=== PATIENT | female | born 1940 | race Caucasian/White ===

== ENCOUNTER → 2021-01-03 | Outpatient (CLI) | payer OTHER, BC | LOC: ULTRA 13:10 | PROVIDERS: ATTEND Family Medicine | DX: R60.0 Localized edema (principal) ==

== ENCOUNTER 2021-04-16 11:06 | Inpatient (IN) | payer OTHER, BC ==
[~2021-04-16] VITALS: Ht 160 cm; Wt 56.7 kg
--- NOTE | ~2021-04-16 | EMS ---
[facility] [address] [place] [address] EMS Patient Care Report Name: DOMINGA KIM Room #: PRE M.R.#: [id number] Admission: Attend Phys: Discharge: Date of : 42 Report #: [id number] THIS REPORT FOR: //name// Report Transmitted: 04/16/2021 10:41 EMS Care Summary [place], [place] Incident [id number] @ 04/16/2021 10:38 [address] Patient DOMINGA KIM Female, 80 Years 1940 [address] [place] [address] Patient History Chronic Obstructive Pulmonary Disease (COPD),Rheumatoid Arthritis, Patient Allergies No known allergies, Patient Medications Prednisone, Chief Complaint shortness of breath Disposition Transported No Lights/[place] Dispatch Reason Breathing Problem Transported To [facility] Narrative M36 dispatched on a breathing problems. M36 arrived to find PT in apartment seated in chair. PT stated shortness of breath as chief complaint. PT stated exertion increased work of breathing. PT stated shortness of breath started one [address] [address] EMS Patient Care Report Name: DOMINGA KIM Room #: PRE ER M.Dany.#: [id number] Admission: Attend Phys: Discharge: Date of : 42 Report #: [id number] week prior. PT stated additional complaints of unproductive cough, N/V/D and decreased appetite. PT denied contact with COVID positive persons. PT stated 'I got COVID tested one week ago and it was negative." PT stated she used her breathing treatment before contacting EMS. PT stated "it did not help." PT assisted to stand and pivot to stretcher. PT secured with seatbelts. PT vitals monitored in route. PT report given. PT moved to hospital bed via four persons sheet lift. PT care and belongings transferred to ER staff at [facility]. M336 placed back in service. Initial Vitals @11:00P: 98,R: 18,BP: 118/70,Pain: 4/10,GCS: 15,CO: 1,SpO2: 96,Revised Trauma: 12, @10:47P: 100,R: 20,Pain: 4/10,GCS: 15,CO: 0,SpO2: 84, @10:44P: 104,R: 18,BP: 146/72,Pain: 4/10,GCS: 15,Glucose: 138,CO: 0,SpO2: 89,Revised Trauma: 12, @10:51P: 106,R: 20,BP: 110/60,Pain: 4/10,GCS: 15,CO: 1,SpO2: 93,Revised Trauma: 12, Assessments @10:53MENTAL:Place Oriented,Event Oriented,Person Oriented,Time Oriented,SKIN:Pale,HEENT:LUNG SOUNDS:General: Diarrhea,General: Nausea,General: Vomiting,ABDOMEN:General: Diarrhea,General: Nausea,General: Vomiting,PELVIS//GI:EXTREMITIES:PULSE:Radial: 2+ Normal,NEURO: Impression Shortness of breath Procedures @10:52ALS AssessmentResponse: UnchangedSucceeded@PTAOxygen FlowRate: 3 Device: Nasal Cannula (NC) Response: ImprovedSucceeded Timeline GIS GEOGRAPHER,Oxygen FlowRate: 3 Device: Nasal Cannula (NC) Response: ImprovedSucceeded, 10:37,Call Received 10:37,Dispatch Notified 10:38,Dispatched 10:38,En Route 10:41,On Scene 10:42,At Patient 10:44,BP: 146/72 M,PULSE: 104,RR: 18 R,SPO2: 89 Ox,ETCO2: ,B,PAIN: 4,GCS: 15, 10:47,BP: / M,PULSE: 100,RR: 20 R,SPO2: 84 Ox,ETCO2: ,BG: ,PAIN: 4,GCS: 15, 10:51,BP: 110/60 M,PULSE: 106,RR: 20 R,SPO2: 93 Ox,ETCO2: ,BG: ,PAIN: 4,GCS: 15, 10:52,ALS Assessment,Response: UnchangedSucceeded, [facility] [address] [place] [address] EMS Patient Care Report Name: LOUDamirDOMINGA Room #: PRE M.R.#: [id number] Admission: Attend Phys: Discharge: Date of : 42 Report #: [id number] 10:55,Depart Scene 11:00,BP: 118/70 M,PULSE: 98,RR: 18 R,SPO2: 96 Ox,ETCO2: ,BG: ,PAIN: 4,GCS: 15, 11:12,At Destination 11:21,Call Closed Disclaimer v1.1 Copyright 2020 [employer] This EMS Care Summary contains data elements from the applicable legal record (which may be displayed differently). It is designed to provide pertinent information for the following purposes: continuity of care, clinical quality, and state data reporting. The complete legal record is available to ED staff and administrators of the receiving hospital in [employer]'s Patient Tracker. All data is provided "as is."
[2021-04-16 11:07] VITALS: BP 137/71
[2021-04-16 11:34] LABS: ABSOLUTE NEUTROPHILS 6.9 thou/uL (1.4-8.2); BASOPHILS 0.8 % (0.0-2.0); EOSINOPHILS 4.6 % (0.0-3.0); HEMATOCRIT 39.5 % (37.0-47.0); HEMOGLOBIN 12.6 gm/dL (12.0-15.0); LYMPHOCYTES 16.9 % (24.0-44.0); MCH 27.7 pg (26.0-34.0); MCHC 31.9 g/dL (28.0-37.0); MCV 86.7 fL (80.0-100.0); MONOCYTES 9.8 % (1.0-8.0); PLATELET COUNT 458 thou/uL (150-400); POLYS 67.9 % (36.0-66.0); RBC 4.55 mil/uL (4.20-5.00); RDW 14.7 % (10.5-14.5); WBC 10.1 thou/uL (4.0-11.0)
[2021-04-16 11:37] LABS: ANION GAP 6 mmol/L (7-16); BUN 9 mg/dL (7-18); CALCIUM 8.5 mg/dL (8.5-10.1); CHLORIDE 102 mmol/L (98-107); CO2 32 mmol/L (21-32); CREATININE 0.8 mg/dL (0.6-1.0); GLUCOSE 114 mg/dL (74-106); SODIUM 140 mmol/L (136-145)
[2021-04-16 11:47] LABS: ALBUMIN 2.4 g/dL (3.4-5.0); SGOT 19 U/L (15-37); SGPT 12 U/L (14-59); TOTAL BILIRUBIN 0.2 mg/dL (0.2-1.0); TOTAL PROTEIN 7.5 g/dL (6.4-8.2); TROPONIN-I <0.06 ng/mL (<0.06)
[2021-04-16] MEDS ORDERED: PREDNISOLONE 5 M5 MG PO (11:57)
[2021-04-16] MEDS ORDERED: NORCO7.5 PO (11:58)
[2021-04-16] MEDS ORDERED: CLONAZEPAM 0.50.5 M1 PO (11:58)
[2021-04-16 12:55] LABS: BE(vivo) 4.1 mmol/L (-2 to +3); PCO2 39.6 mmHg (35.0-45.0); PO2 56.8 mmHg (80.0-100.0); pH 7.468 (7.360-7.450); sO2 91.2 % (92.0-98.0)
[2021-04-16 16:19] VITALS: BP 103/57
[2021-04-16 20:29] VITALS: BP 124/62
[2021-04-17 05:44] LABS: HEMATOCRIT 34.6 % (37.0-47.0); HEMOGLOBIN 11.1 gm/dL (12.0-15.0); MCH 27.7 pg (26.0-34.0); MCHC 32.3 g/dL (28.0-37.0); MCV 85.9 fL (80.0-100.0); RBC 4.02 mil/uL (4.20-5.00); RDW 14.3 % (10.5-14.5); WBC 3.8 thou/uL (4.0-11.0)
[2021-04-17 05:58] LABS: CALCIUM 8.7 mg/dL (8.5-10.1); CREATININE 0.8 mg/dL (0.6-1.0); POTASSIUM 4.2 mmol/L (3.5-5.1)
--- NOTE | 2021-04-17 07:27 | EKG ---
[place] [address] [place] [address] ELECTROCARDIOGRAM REPORT Name: DOMINGA KIM Room #: 170-17 ADM IN M.R.#: [id number] Admission: 04/16/21 Attend Phys: Ulysses Mccarthy MD Discharge: Date of : 42 Report #: [id number] [facility] ED Test Date: 2021-04-16 Test Time: 11:15:20 Pat Name: DOMINGA KIM Department: Room: 170 Gender: F Hr Representative: ERNESTINE : 1940 Requested By: Britton Nowak Order Number: [id number] MD: Royce Mccollum Measurements Intervals [place] Rate: 99 P: 84 [place]: 135 QRS: 82 QRSD: 84 T: 46 QT: 329 QTc: 423 Interpretive Statements Sinus tachycardia Atrial premature complex Probable left atrial enlargement Borderline right axis deviation Probable anteroseptal infarct, old Minimal ST depression, anterolateral leads No previous ECG available for comparison Electronically Signed On 04-17-2021 7:27:10 CDT by Royce Mccollum [email or web address] <ELECTRONICALLY SIGNED> By: Royce Mccollum MD, [facility] 04/17/21 0727 Royce Mccollum MD, FAC /EPI
[2021-04-17 16:53] VITALS: BP 115/38
--- NOTE | 2021-04-17 17:34 | NUR ---
80-year-old female patient of Dr. Aquino came to the ED on 04-16-21 with both a past medical history of rheumatoid arthritis, COPD and presently for an evaluation of difficulty breathing. Patient reports she been having increasing shortness of breath, to the point where she has been unable to walk longer than a few steps without getting short of breath. Patient is always on 2 L by nasal cannula, however states that more recently she has increased her dose to 2.5 L. She states she has been taking multiple breathing treatments per day without significant improvement. The patient reports testing negative lst week for Covid and also states she has not been vaccinated. ID NOW in the ED is documented at negative. Pulmonology has been consulted. NOTE patient follow with Dr. Romero for pulmonary care at [facility]. The patient has been admitted with: COPD exasperation and Acute on Chronic hypoxic respiratory failure. In the ED and MD documentation the patient is listed as A&O x4 and presented to the ED with her daughter Carla Forman at [phone]. The patient currently resides at [facility] in apartment [facility]. Introduced role of CM and daughter wants to make sure her breathing is tested while walking prior to discharge. Explained therapy and RT evaluation and daughter is aware and will wait to see MD plans of care and subsequent discharge needs outlined as CM continues to follow for discharge needs. Daughter did confirm that patient had not been vaccinated.
[2021-04-17 17:41] VITALS: BP 104/43
[2021-04-17 18:35] VITALS: BP 134/57
--- NOTE | 2021-04-17 18:43 | NUR ---
PATIENT ARRIVED ON UNIT AT 1835. IV FLUIDS CONNECTED AND VITAL SIGNS TAKEN.
[2021-04-17 19:47] VITALS: BP 122/53
--- NOTE | 2021-04-17 23:57 | NUR ---
Pt admitted from ED with COPD exacerbation. A/OX4,pleasant. VSS.C/o pain allover joints,medicated per EMAR. Skin C/D/I. Up with SBA,fall safety reinforced,agrees to call for help as needed. Meds/purse sent home with dtr upon visit. Resting quietly at this time,will continue to monitor pt.
--- NOTE | 2021-04-18 01:33 | NUR ---
[facility] PT CARE AT 1915. PT ALERT AND ORIENTED X4. PT IS ON 2L VIA NC. PT HAD HOME MEDS IN POSSESSION AND BECAME REALLY AGITATED WHEN INFORMED TO TURN IN MEDS TO PHARMACY. SO HOME MEDS WERE GIVEN TO PT'S DAUGHTER TO TAKE HOME. PT KEPT COMPLAINING ABOUT THE DOSAGE FOR CLONEZEPAM EVEN THOUGH IT IS THE SAME DOSAGE TAKEN AT HOME. PT C/O GENERALIZED PAIN WHICH WAS MANAGED BY PRN MEDS. PT IS A SBA TO THE BSC. FALL PREACAUTIONS IN PLACE WITH CALL LIGHT WITHIN REACH. WILL CONTINUE TO MONITOR.
[2021-04-18 06:25] VITALS: BP 116/53
[2021-04-18 07:30] VITALS: BP 115/61
[2021-04-18 12:57] LABS: HEMATOCRIT 30.8 % (37.0-47.0); HEMOGLOBIN 9.7 gm/dL (12.0-15.0); MCH 27.4 pg (26.0-34.0); MCHC 31.7 g/dL (28.0-37.0); MCV 86.6 fL (80.0-100.0); RBC 3.55 mil/uL (4.20-5.00)
[2021-04-18 13:26] LABS: ALBUMIN 2.2 g/dL (3.4-5.0); ANION GAP 8 mmol/L (7-16); BUN 19 mg/dL (7-18); CALCIUM 8.1 mg/dL (8.5-10.1); CHLORIDE 109 mmol/L (98-107); CO2 28 mmol/L (21-32); CREATININE 0.8 mg/dL (0.6-1.0); GLUCOSE 88 mg/dL (74-106); POTASSIUM 3.5 mmol/L (3.5-5.1); SGOT 12 U/L (15-37); SGPT 17 U/L (30-65); SODIUM 145 mmol/L (136-145); TOTAL BILIRUBIN 0.1 mg/dL (0.2-1.0); TOTAL PROTEIN 6.4 g/dL (6.4-8.2); TROPONIN-I <0.06 ng/mL (<0.06)
--- NOTE | 2021-04-18 14:00 | NUR ---
PT ADMITTED RELATED TO COPD EXACERBATION, ACUTE ON CHRONIC HYPOXIC RESP FAILURE. CM REVIEWED CHART AND SPOKE WITH CARE TEAM. CM MET WITH PT AT BEDSIDE THIS DAY. PT APPEARED TO BE A&O X4. CM ROLE INTRODUCED. PT INDICATED THAT SHE LIVES ALONE IN AN INDEPENDENT LIVING APARTMENT AT [facility]. 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 PT INDICATED NO HH HX. PT INDICATED SHE HAS A 4WW WTIH A SEAT BUT THAT SHE HADN'T REALLY USED ANY GAIT AIDS CEMENT CRUSHER OPERATOR. PT INDICATED THAT SHE MIGHT BE RECEPTIVE TO HH SERVICES UPON DC. PT INDICATED NO PREFERECE FOR PROVIDERS. PT APPEARED TO BE DEPRESSED AND EXPRESSED FEELINGS OF HOPELESSNESS RELATED TO HER RA DX AND HER PERCEIVED NEGATIVE IMPACT ON HER QOL. PT INDICATED SHE WOULD BE OPEN TO SPEAKING WITH PSYCHIATRIST DURING ADMISSION. CM NOTIFIED DR. MCGEE. PT AND OT ASSESSED AND INDICATED THAT PT WOULD BE SAFE TO RETURN TO HER [facility] HH ONCE MEDICALLY STABLE. CM FOLLOWING REGARDING DC PLANNING.
[2021-04-18 15:01] VITALS: BP 114/50
[2021-04-18 19:33] VITALS: BP 130/46
--- NOTE | 2021-04-18 19:33 | NUR ---
Assumed pt care at 7am.Pt in and out of bed with sba.Assessment completed.vss. Pt c/o generalized pain rated 7/10.Pain med given with relief.Pt was depressed related to severe arthritic pain. Received call from Dr Mccarthy and consult called to Dr Keane who later rounded on pt this evening.Report off to abran soto.
--- NOTE | 2021-04-19 01:43 | NUR ---
ASSUMED PT CARE AT 1930. PT IS ALERT AND ORIENTED X4.PT IS ON 2L VIA NC. PT WAS SOB AFTER GOING THE BR WITHOUT NC. NC TUBE WAS EXTENDED AND BSC WAS MOVED CLOSER TO PT'S BED SINCE PT IS UP AD SONIA. PT'S DAUGHTER WAS CONCERNED ABOUT POSSIBLE URINE RETENTION WITH POSSIBLE INFECTION AND PT ALSO C/O NOT HAVING THE URGE TO URINATE. PT'S URINE HAS STRONG SMELL BUT NOT FOUL. BLADDER WAS SCANNED WITH 66ML IN IT. FALL PRECAUTIONS IN PLACE WITH CALL LIGHT WITHIN REACH. WILL CONTINUE TO MONITOR.
[2021-04-19] MEDS ORDERED: AZITHROMYCIN 2250 MG PO (07:36)
[2021-04-19 08:00] VITALS: BP 134/68
[2021-04-19 11:12] VITALS: BP 134/68
--- NOTE | 2021-04-19 11:13 | NUR ---
PT HAD BEEN SEEN BY DR. SAMS YESTERDAY EVENING CONSULT CAN'T BE READ AT THIS TIME. CARE TEAM INDICATED THAT PT IS MEDICALLY STABLE TO DC HOME THIS DAY. PT [place] TO [place] BACK TO [place] APARTMENT AT [facility] THIS DAY WITH HH SERVICES. PT INDICATED NO PREFERENCE FOR PROVIDER. REFERRAL SENT TO [facility]. THEY MET WITH PT HERE PRIOR TO DC. NO NEW DME NEEDED. CM NOTIFIED [facility] OF ANTICPATED DC WIHT HH THIS DAY. PT HAD TRANSPORT HOME THIS DAY. NO OTHER CM INTERVENTION INDICATED. CASE CLOSED.
[2021-04-19 12:47] VITALS: BP 134/68
--- NOTE | 2021-04-19 12:55 | NUR ---
DC teaching complete, pt encouraged to follow up with primary care in the next week. CT completed and per Dr. Ordoñez pt is okay to discharge home with home health. RN called daughter, Carla, who stated she would be on her way to pick the pt up. VSS, pt on 2L at baseline.
--- NOTE | 2021-04-19 14:07 | NUR ---
PIV D/C'd, pt dressed waiting in room for daughter to arrive.
[2021-04-19 14:28] VITALS: BP 134/68
== END 2021-04-19 14:34 | disposition home health service (06) | DRG 189 ==
LOC: ER 11:06 → 4W 14:19 → EROBS 14:19 → 4W 04-17 17:44
PROVIDERS: Emergency Medicine; Hospitalist; ADMIT Family Medicine; ATTEND Family Medicine
DX: J96.21 Acute and chronic respiratory failure with hypoxia (principal); J44.1 Chronic obstructive pulmonary disease with (acute) exacerbation; M06.9 Rheumatoid arthritis, unspecified; R30.0 Dysuria; J84.89 Other specified interstitial pulmonary diseases; F43.20 Adjustment disorder, unspecified; Z20.822 Contact with and (suspected) exposure to COVID-19; Z79.899 Other long term (current) drug therapy; Z88.1 Allergy status to other antibiotic agents; Z88.8 Allergy status to other drugs, medicaments and biological substances; Z87.891 Personal history of nicotine dependence
CPT/HCPCS: 10047

== ENCOUNTER 2021-05-08 13:49 | Inpatient (IN) | payer OTHER, BC ==
[~2021-05-08] VITALS: Ht 157.5 cm; Wt 57.9 kg
--- NOTE | ~2021-05-08 | EMS ---
[facility] [address] [place] [address] EMS Patient Care Report Name: DOMINGA KIM Room #: 458-P ADM IN M.R.#: [id number] Admission: 05/08/21 Attend Phys: Ulysses Mccarthy MD Discharge: Date of : 42 Report #: [id number] THIS REPORT FOR: //name// Report Transmitted: 05/10/2021 10:46 EMS Care Summary [place], [place]/[facility] Incident [id number] @ 05/08/2021 13:26 Incident Location [address] Patient DOMINGA KIM Female, 80 Years 1940 Patient Address [address] [facility] [address] [place] [address] Patient History Other,Chronic Obstructive Pulmonary Disease (COPD),Rheumatoid Arthritis, Patient Allergies Cipro,Levaquin, Patient Medications Albuterol, Other, Chief Complaint short of air Disposition Transported No Lights/[place] Dispatch Reason Sick Person Transported To [facility] Narrative Arrived to find pt sitting in chair in living room on personal O2 machine. Pt home health stated pt got out of hospital 10 days ago for a "lung infection" and was told to go back if she did not improve. Pt complains of shortness of [facility] [address] [place] [address] EMS Patient Care Report Name: DOMINGA KIM Room #: 458-P [facility] IN [place].Dany.#: [id number] Admission: 05/08/21 Attend Phys: Ulysses Mccarthy MD Discharge: Date of : 42 Report #: [id number] breath upon exertion and dropping sats upon exertion. Pt is not vaccinated. Home health nurse states she gave pt a breathing treatment an hour ago that helped a little. Pt is able to speak in full sentences. Pt placed on cot and switched over to cot o2. Pt is in KN95 mask. Pt placed in back of unit and transported without incident. Care to RN, rm 12. Initial Vitals @13:38P: 94,BP: 118/77, @13:34P: 90,BP: 134/70,Pain: 0/10,GCS: 15, @13:39P: 94,R: 18,Pain: 0/10,CO: 2,SpO2: 97, @13:40P: 94,BP: 118/78, Assessments @13:33MENTAL:Place Oriented,Event Oriented,Person Oriented,Time Oriented,SKIN:HEENT:Head/Face: No Abnormalities,Eyes: No Abnormalities,Neck/Airway: No Abnormalities,LUNG SOUNDS:General: No Abnormalities,Left Upper: No Abnormalities,Right Upper: No Abnormalities,Left Lower: No Abnormalities,Right Lower: No Abnormalities,ABDOMEN:General: No Abnormalities,Left Upper: No Abnormalities,Right Upper: No Abnormalities,Left Lower: No Abnormalities,Right Lower: No Abnormalities,PELVIS//GI:No Abnormalities,EXTREMITIES:Left Arm: No Abnormalities,Right Arm: No Abnormalities,Left Leg: No Abnormalities,Right Leg: No Abnormalities,PULSE:NEURO:No Abnormalities, Impression Respiratory disorder Procedures @13:33ALS AssessmentResponse: UnchangedSucceeded@PTAOxygen FlowRate: 2 Device: Nasal Cannula (NC) Succeeded@13:403-Lead ECGResponse: UnchangedSucceeded Timeline RN CARE MANAGER,Oxygen FlowRate: 2 Device: Nasal Cannula (NC) Succeeded, 13:24,Call Received 13:24,Dispatch Notified 13:26,Dispatched 13:26,En Route 13:30,On Scene 13:32,At Patient 13:33,ALS Assessment,Response: UnchangedSucceeded, 13:34,BP: 134/70 M,PULSE: 90,RR: R,SPO2: Ox,ETCO2: ,BG: ,PAIN: 0,GCS: 15, 13:38,BP: 118/77 M,PULSE: 94,RR: R,SPO2: Ox,ETCO2: ,BG: ,PAIN: ,GCS: , 13:39,BP: / M,PULSE: 94,RR: 18 R,SPO2: 97 Ox,ETCO2: ,BG: ,PAIN: 0,GCS: , 13:40,BP: 118/78 M,PULSE: 94,RR: R,SPO2: Ox,ETCO2: ,BG: ,PAIN: ,GCS: , 13:40,Depart Scene 13:40,3-Lead ECG,Response: UnchangedSucceeded, [facility] [address] [place] [address] EMS Patient Care Report Name: DOMINGA KIM Room #: 458-P ADM IN M.R.#: [id number] Admission: 05/08/21 Attend Phys: Ulysses Mccarthy MD Discharge: Date of : 42 Report #: [id number] 13:43,At Destination 13:55,Call Closed Disclaimer v1.1 Copyright 2020 [employer] This EMS Care Summary contains data elements from the applicable legal record (which may be displayed differently). It is designed to provide pertinent information for the following purposes: continuity of care, clinical quality, and state data reporting. The complete legal record is available to ED staff and administrators of the receiving hospital in [employer]'s Patient Tracker. All data is provided "as is."
[2021-05-08 13:49] VITALS: BP 130/64
[~2021-05-08 13:49] MED LIST: AZITHROMYCIN 2250 MG PO; CLONAZEPAM 0.50.5 M1 PO; NORCO7.5 PO; PREDNISOLONE 5 M5 MG PO
[2021-05-08] MEDS ORDERED: IVERMECTIN3 MG (13:56)
[2021-05-08 14:21] LABS: ABSOLUTE NEUTROPHILS 7.3 thou/uL (1.4-8.2); BASOPHILS 0.6 % (0.0-2.0); EOSINOPHILS 2.3 % (0.0-3.0); HEMATOCRIT 38.6 % (37.0-47.0); HEMOGLOBIN 12.4 gm/dL (12.0-15.0); LYMPHOCYTES 9.2 % (24.0-44.0); MCH 27.8 pg (26.0-34.0); MCHC 32.1 g/dL (28.0-37.0); MCV 86.6 fL (80.0-100.0); MONOCYTES 5.4 % (1.0-8.0); PLATELET COUNT 350 thou/uL (150-400); POLYS 82.5 % (36.0-66.0); RBC 4.45 mil/uL (4.20-5.00); RDW 15.3 % (10.5-14.5); WBC 8.8 thou/uL (4.0-11.0)
[2021-05-08 14:24] LABS: CALCIUM 8.9 mg/dL (8.5-10.1); CREATININE 0.8 mg/dL (0.6-1.0); POTASSIUM 4.1 mmol/L (3.5-5.1)
[2021-05-08 14:34] LABS: ALBUMIN 2.8 g/dL (3.4-5.0); TOTAL BILIRUBIN 0.4 mg/dL (0.2-1.0); TOTAL PROTEIN 7.3 g/dL (6.4-8.2)
[2021-05-08 14:51] LABS: BE(vivo) 6.2 mmol/L (-2 to +3); HCO3 31.5 mmol/L (22.0-26.0); PO2 106.1 mmHg (80.0-100.0); pH 7.435 (7.360-7.450)
[2021-05-08 17:37] LABS: URINE BILIRUBIN NEGATIVE (Negative); URINE BLOOD NEGATIVE (Negative); URINE CLARITY CLEAR; URINE COLOR YELLOW; URINE GLUCOSE-RANDOM* NEGATIVE (Negative); URINE KETONES NEGATIVE (Negative); URINE LEUKOCYTES-REFLEX NEGATIVE (Negative); URINE NITRITE-REFLEX NEGATIVE (Negative); URINE PROTEIN (DIPSTICK) NEGATIVE (Negative); URINE UROBILINOGEN 0.2 E.U./dl (0.2-1.0)
[2021-05-08 19:10] VITALS: BP 141/60
[2021-05-08 19:15] VITALS: BP 105/57
[2021-05-08 20:26] VITALS: BP 99/64
--- NOTE | 2021-05-09 01:13 | NUR ---
patient aox4 makes needs known. patient admitted for copd, soa with activities. patient is on 2.5 L of oxygen no meg or distress noted this shift. patient requested for klonopin 0.25 and [facility] called and got the order. Dr. Mccarthy notified that patient is admitted in the facility. fall prcaution in place. patient in bed asleep at this time breathing regular and unlaboured.
[2021-05-09 03:09] LABS: HEMATOCRIT 34.4 % (37.0-47.0); HEMOGLOBIN 11.3 gm/dL (12.0-15.0); MCH 28.3 pg (26.0-34.0); MCHC 32.7 g/dL (28.0-37.0); MCV 86.4 fL (80.0-100.0); RBC 3.98 mil/uL (4.20-5.00); RDW 15.1 % (10.5-14.5); WBC 3.6 thou/uL (4.0-11.0)
[2021-05-09 03:47] LABS: CALCIUM 8.6 mg/dL (8.5-10.1); CREATININE 0.8 mg/dL (0.6-1.0); POTASSIUM 4.6 mmol/L (3.5-5.1)
[2021-05-09 06:14] VITALS: BP 98/50
[2021-05-09 07:00] VITALS: BP 109/52
[2021-05-09 11:04] VITALS: BP 121/56
--- NOTE | 2021-05-09 11:04 | NUR ---
Triggered for high risk screening. Pt with recent admit 04/2021 for COPD exacerbation. D/c'd home to [facility] few days later. She readmits with PNE currently; RA and COPD dx. She takes ivermectin OTC r/t believes it is better than the COVID vaccine, not vaccinated, covid rapid neg at this time. On ABT, steroid, bronchodilator, IVFs. Intake on last admit 100% at meals, no weight loss noted this admit. Pt reports no nutrition concerns at this time but does report hx fluctuating appetite and inappropriate "meals. She reports eating convenience foods since she lives alone and has difficulty with ADLs. Reports variable appetite r/t grief-loss of and some family troubles, however, she denies depression and declines to admit that depression exists. CM reports possible d/c back to [place] with HH if pt agrees. Follow weight and intake trends, pt with higher kcal needs r/t respiratory distress. Will add ensure daily for those addition kcal. Low nutrition risk with interventions initiated.
--- NOTE | 2021-05-09 11:34 | NUR ---
Alert and orientated X4. Conversive, expressing concerns r/t BP and decreased O2 sats at home. Breath sounds clear, bilaterally equal on 2 L FiO2 per NC. O2 sats 95-97%. No nasal flaring or retractions visualized. Reg HR auscultated. Color pink with brisk capillary refill and palpable peripheral pulses. NS infusing at 250 cc/hr per R forearm, will decrease to 80 cc/hr after antibiotic complete. Up to BSC without difficulty but stated she felt her BP was low when she got back into bed. BP obtained, WNL. Yellow urine per commode. Active bowel sounds over soft, rounded abdomen, states BM last night. Currently in bed without s/o distress.
--- NOTE | 2021-05-09 14:46 | 2DMMODE ---
[facility] [place] [address] 2 D/M-MODE ECHOCARDIOGRAM Name: DOMINGA KIM Room #: 458-P ADM IN M.R.#: [id number] Admission: 05/08/21 Attend Phys: Ulysses Mccarthy MD Discharge: Date of : 42 Report #: [id number] THIS REPORT FOR: cc: Ulysses Mccarthy MD, Neal A. MD Park, Jin S. MD ~ APPROVED REPORT Study performed: 05/09/2021 13:39:51 EXAM: Comprehensive 2D, Doppler, and color-flow Echocardiogram Patient Location: Bedside Room #: [facility] Status: routine BSA: 1.59 HR: 78 bpm BP: 121/56 mmHg Rhythm: NSR Other Information Study Quality: Technically Limited Technically limited study due to lung disease. Indications Hypotension COPD Dyspnea 2D Dimensions IVC: 15.00 mm Aortic Valve AoV Peak Parmjit.: 1.66 m/s AO Peak Gr.: 10.99 mmHg LVOT Max P.49 mmHg LVOT Max V: 1.37 m/s Mitral Valve E/A Ratio: 0.8 MV Decel. Time: 256.24 ms MV E Max Parmjit.: 0.66 m/s MV A Parmjit.: 0.85 m/s MV PHT: 74.31 ms IVRT: 115.34 ms [facility] [place] [place] [address] 2 D/M-MODE ECHOCARDIOGRAM Name: DOMINGA KIM Room #: 458-P ADM IN M.R.#: [id number] Admission: 05/08/21 Attend Phys: Ulysses Mccarthy, Discharge: Date of : 42 Report #: [id number] Pulmonary Valve PV Peak Parmjit.: 1.19 m/s PV Peak Gr.: 5.63 mmHg Pulmonary Vein P Vein S: 0.40 m/s P Vein A: 0.31 m/s P Vein D: 0.32 m/s P Vein A Dur.: 106.1 msec P Vein S/D Ratio: 1.25 Tricuspid Valve TR Peak Parmjit.: 2.55 m/s TR Peak Gr.: 26.05 mmHg PA Pressure: 31.00 mmHg Left Ventricle The left ventricle is normal size. There is normal LV segmental wall motion. There is normal left ventricular wall thickness. The left ventricular systolic function is normal. The left ventricular ejection fraction is within the normal range. LVEF is 60-65%. Grade I - abnormal relaxation pattern. Right Ventricle The right ventricle is normal size. The right ventricular systolic function is normal. Atria The left atrium size is normal. The right atrium size is normal. Aortic Valve The aortic valve is normal in structure. No aortic regurgitation is present. There is no aortic valvular stenosis. Mitral Valve The mitral valve is normal in structure. Trace mitral regurgitation. No evidence of mitral valve stenosis. Tricuspid Valve The tricuspid valve is normal in structure. There is mild tricuspid regurgitation. Estimated PAP 31 mmHg. Pulmonic Valve The pulmonary valve is normal in structure. There is no pulmonic valvular regurgitation. Great Vessels [facility] [address] [place] [address] 2 D/M-MODE ECHOCARDIOGRAM Name: DOMINGA KIM Room #: 458-P [facility] IN [facility].#: [id number] Admission: 05/08/21 Attend Phys: Ulysses Mccarthy, Discharge: Date of : 42 Report #: [id number] The aortic root is normal in size. IVC is normal in size and collapses >50% with inspiration. Pericardium There is no pericardial effusion. <Conclusion> The left ventricle is normal size. There is normal left ventricular wall thickness. The left ventricular systolic function is normal. Grade I - abnormal relaxation pattern. The right ventricle is normal size. The left atrium size is normal. The aortic valve is normal in structure. Trace mitral regurgitation. There is mild tricuspid regurgitation. Estimated PAP 31 mmHg. <ELECTRONICALLY SIGNED> By: Jagdeep Zambrano MD 05/09/21 1446 [id number] [id number] Jagdeep Zambrano MD /INF
--- NOTE | 2021-05-09 16:51 | NUR ---
PT ADMITTED RELATED TO COPD EXACERBATION WEAKNESS, AND DYSPNEA. CM REVIEWED CHART AND SPOKE WITH CARE TEAM. CM MET WITH PT AT BEDSIDE THIS DAY. PT APPEARED TO BE A&O X4. CM ROLE INTRODUCED. PT INDICATED THAT SHE LIVES ALONE IN AN INDEPENDENT LIVING APARTMENT AT [facility]. 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 PT [facility]. PT INDICATED SHE HAS A 4WW WTIH A SEAT BUT THAT SHE HADN' REALLY USED ANY GAIT AIDS CUSTOMER SERVICE SPECIALIST. PT INDICATED DESIRE TO RETURN TO HER [place] APARTMENT WIHT ONCE MEDICALLY STABLE. CM FOLLOWING REGARDING DC PLANNING.
[2021-05-09 17:14] VITALS: BP 107/57
[2021-05-09 20:00] VITALS: BP 115/58
--- NOTE | 2021-05-10 00:03 | NUR ---
ASSUMED CARE AT 1900 OF 05/09. PATIENT IS A&OX4, ABLE TO MAKE NEEDS KNOWN. VSS. REPORTS PAIN IN RIGHT SHOULDER, PRN HYDROCODONE ADMINISTERED TO MANAGE PAIN WITH PARTIAL PAIN RELEIF REPORTED. PATIENT IS ON CONTINUOUS O2 VIA NC AT 2L, O2 SAT REMAINING ABOVE 92%. HUMIDIFICATION SYSTEM ATTACHED TO OXYGEN. NO FURTHER COMPLAINTS OF NOSE BLEEDS. IV FLUIDS RUNNING AT 80CC/HR VIA RIGHT AC IV SITE. NO SIGNS OF INFECTION OR INFILTRATION AT IV SITE. PATIENT REQUESTED FOR A SNACK AT BEDTIME AND WAS PROVIDED ONE. FALL PRECAUTIONS IN PLACE, CALL LIGHT WITHIN REACH, WILL CONTINUE TO MONITOR.
[2021-05-10 03:44] LABS: CALCIUM 7.9 mg/dL (8.5-10.1); CREATININE 0.8 mg/dL (0.6-1.0); POTASSIUM 4.2 mmol/L (3.5-5.1)
[2021-05-10 06:09] VITALS: BP 95/54
--- NOTE | 2021-05-10 08:00 | EKG ---
[address] [employer] [place] [address] ELECTROCARDIOGRAM REPORT Name: DOMINGA KIM Room #: 458-P ADM IN M.R.#: [id number] Admission: 05/08/21 Attend Phys: Ulysses Mccarthy MD Discharge: Date of : 42 Report #: [id number] [facility] ED Test Date: 2021-05-08 Test Time: 14:11:01 Pat Name: DOMINGA KIM Department: Room: [facility] Gender: F Software Development Manager: Elza[EIT : 1940 Requested By: Nitesh العلي Order Number: [id number] MD: Franco Fernandez Measurements Intervals [place] Rate: 91 P: 92 CT: 129 QRS: 79 QRSD: 83 T: 70 QT: 347 QTc: 427 Interpretive Statements Sinus rhythm Nonspecific ST segment abnormality Compared to ECG 04/16/2021 11:15:20 Sinus tachycardia no longer present Atrial premature complex(es) no longer present Electronically Signed On 05-10-2021 7:59:52 CDT by Franco Fernandez [email or web address] <ELECTRONICALLY SIGNED> By: Franco Fernandez MD, [facility] 05/10/21 0759 1411 141 Franco Fernandez MD, [facility] /EPI
[2021-05-10 08:13] VITALS: BP 124/69
--- NOTE | 2021-05-10 16:35 | NUR ---
PT INDICATED DESIRE TO GO TO [facility] FOR A SHORT STAY UPON DC. CM FAXED REFERRAL. HILDA RECEIVED IT AND INDICATED THEY CAN ACCEPT PT ONCE MEDICALLY STABLE. CM INDICATED POTENTIALLY DC READY TOMORROW. CM FOLLOWING REGARDING DC PLANNING.
[2021-05-10 20:15] VITALS: BP 145/71
--- NOTE | 2021-05-11 02:55 | NUR ---
TODAY THIS PT HAS HAD SOME STATED PAIN IN WHICH SHE HAS GOTTEN MEDICATION FOR. SHE HAS HAD STABLE VS AND TOLERATING HER FLUIDS WELL. SHE HAS BEEN ASLEEP FOR MOST OF THE NIGHT WHILE AWAITING FOR THE NEXT PLAN.
[2021-05-11 07:49] VITALS: BP 127/54
--- NOTE | 2021-05-11 10:59 | NUR ---
ASSUMED PT CARE THIS AM. PT A&OX4, ABLE TO MAKE NEEDS KNOWN. PATIENT COMPLAINS OF SHORTNESS OF BREATH WITH ACTIVITY. PATIENT REMAINS CONTINENT, UP WITH ASSIST TO THE BEDSIDE COMMODE. PATIENT ON 2 LITERS OF OXYGEN PRN. IV REMAINS PATENT. MEDICATIONS TAKEN WITHOUT ISSUE. PATIENT REPORTING PAIN IN HER RIGHT WRIST. JOINT DEFORMITY NOTED IN LEFT HAND. PATIENT REPORTS NO NUMBNESS OR TINGLING. FALL PRECAUTIONS ARE IN PLACE, CALL LIGHT WITHIN REACH.
[2021-05-11 11:32] VITALS: BP 121/68
[2021-05-11 17:28] VITALS: BP 106/52
[2021-05-11 20:11] VITALS: BP 124/56
[2021-05-12 02:05] LABS: CALCIUM 8.3 mg/dL (8.5-10.1); CREATININE 0.8 mg/dL (0.6-1.0); POTASSIUM 3.4 mmol/L (3.5-5.1)
--- NOTE | 2021-05-12 03:40 | NUR ---
ASSUMED PT CARE AT 1945.PT IS ALERT AND ORIENTED X4. PT IS PLEASANT AND COOPERATIVE. PT DID NOT C/O SOB. PT IS ON 3L VIA NC. PAIN C/O PAIN WHICH WAS MANAGED BY PRN MEDS. PT IS UPX1 WITH GB TO THE BR. MEDS GIVEN PER EMAR ORDERS. FALL PRECAUTIONS IN PLACE. WILL CONTINUE TO MONITOR.
[2021-05-12] MEDS ORDERED: MIDODRINE HCL 55 M1 PO (10:34)
[2021-05-12] MEDS ORDERED: IPRAT-ALBUT 0.5-3 ML INH (10:34)
[2021-05-12] MEDS ORDERED: CLONAZEPAM 0.50.5 M1 PO (10:35)
[2021-05-12] MEDS ORDERED: NORCO7.5 PO (10:35)
[2021-05-12] MEDS ORDERED: PREDNISONE 20 M20 M1 PO (10:36)
--- NOTE | 2021-05-12 10:52 | NUR ---
ASSUME CARE OF PATIENT AT SHIFT CHANGE. ASSESSMENT CHARTED. MEDICATION ADMINISTERED PER EMAR. VSS; PATIENT IS A&OX4 AND PLEASANT, ABLE TO MAKE NEEDS KNOWN. PATIENT IS AMBULATING TO BATHROOM WITH SBA, NO ISSUES & NO DYSPNEA SEEN BUT PATIENT SELF CHECKS O2 AFTER AMBULATING; TAKING 3 MINS TO GO FROM 84 TO 90. PATIENT DOES PURSE LIPPED BREATHING WITH IMPROVEMENT. PATIENT WAS TO BE ASSESSED BY 5N REHAB HOWEVER PROVIDER UPDATED THIS NURSE THAT PATIENT DOES NOT MEET CRITERIA. CLARA TATE CALLED X2 PATIENT WOULD LIKE TO SPEAK W HER. PATIENT IS OTHERWISE MEDICALLY STABLE. DENIES PAIN, TOLERATING PO DIET WELL & VOIDING WELL W NO ISSUES. WILL UPDATE PROVIDER W ANY CHANGES & CONTINUE TO MONITOR PATIENT.
--- NOTE | 2021-05-12 11:29 | NUR ---
CM visited with patient and daughter at bedside, education on 5n and skilled. Re-education on what qualifies for acute rehab and why she not needing acute rehab. ok with [facility]. Transporation set up for 2pm wheelchair with oxygen. bedside nurse to call report to [phone]. Chart copy requested and will need to be sent with patient at ks. [facility]
== END 2021-05-12 18:29 | DRG 189 ==
LOC: ER 13:49 → 4W 16:45 → EROBS 16:45 → 4W 19:25
PROVIDERS: Nurse Practitioner; ADMIT Family Medicine; ATTEND Family Medicine
DX: J96.20 Acute and chronic respiratory failure, unspecified whether with hypoxia or hypercapnia (principal); J44.1 Chronic obstructive pulmonary disease with (acute) exacerbation; I95.1 Orthostatic hypotension; Z20.822 Contact with and (suspected) exposure to COVID-19; M06.9 Rheumatoid arthritis, unspecified; I95.9 Hypotension, unspecified; F41.9 Anxiety disorder, unspecified; R53.81 Other malaise; Z88.1 Allergy status to other antibiotic agents; Z87.891 Personal history of nicotine dependence
CPT/HCPCS: 10040

== ENCOUNTER 2021-10-08 08:12 | Inpatient (IN) | payer OTHER, BC ==
[~2021-10-08] VITALS: Ht 149.9 cm; Wt 54.6 kg
--- NOTE | ~2021-10-08 | HC ---
[facility] [address] [place] [address] CONSULTATION Name: DOMINGA KIM Room #: 210-P [facility] IN M.R.#: [id number] Admission: 10/08/21 Attend Phys: Patrick Kebede Discharge: 10/10/21 Date of : 42 Report #: [id number] THIS REPORT FOR: cc: Ulysses Mccarthy MD, Neal A. MD Walton,Hunter Whiting MD ~ cc: Ulysses Mccarthy MD, Patrick Kebede MD DATE OF SERVICE: 10/10/2021 SURGEON: Hunter Do MD. REASON FOR CONSULTATION: Hearing loss. HISTORY OF PRESENT ILLNESS: The patient is an 81-year-old female admitted to [facility] on 10/08/2021 with exacerbation of shortness of breath. She was found to have a small pulmonary embolism. I was consulted on her because of the patient's perception of a change in hearing over the last several months. She dates this back to an episode of COVID at least 3 weeks ago. The patient was at [facility] and had a fall. After that, she noticed worsening of her hearing. No family was available to discuss previous hearing. She denies any vertigo. She denies any ear pain. She is rather nebulous about whether she had had hearing loss in the past. PAST MEDICAL HISTORY: Significant for COPD with recent exacerbation, dyspnea, pulmonary embolus, shortness of breath, and debility. MEDICATIONS: Reviewed on her oct. ALLERGIES: TO CIPROFLOXACIN AND LEVOFLOXACIN. REVIEW OF SYSTEMS: Otherwise, a 12-point review of systems this morning is negative. PHYSICAL EXAMINATION: GENERAL: Shows a well-developed 81-year-old female. She is awake, alert, conversant, sitting on the edge of her bed when I came in. VITAL SIGNS: Temperature of 97.7, pulse of 82, she is 97% on room air, blood pressure 128/59, respirations 18. HEENT: Normocephalic. Pupils equal, round, reactive to light. OTOLOGIC EXAM: Normal external canals, normal tympanic membrane. No middle ear effusion. No mastoid tenderness. ____ localizes in the midline. Rinne air conduction greater than bone conduction at 10-12 Hz, air conduction greater than bone conduction at 512 Hz. Exam shows a deviated septum. No acute purulence. No sinus percussive tenderness. Oral cavity, no mucosal lesions. NECK: Without adenopathy or other masses. No carotid bruits. [address] [address] CONSULTATION Name: DOMINGA KIM Room #: [address] [place] [address] IN M.R.#: [id number] Admission: 10/08/21 Attend Phys: Patrick Kebede Discharge: 10/10/21 Date of : 42 Report #: [id number] NEUROLOGIC: Cranial nerves 2-12 intact. Motor, sensory, and cerebellar exams are grossly normal. DIAGNOSTIC DATA: CT head on admission was reviewed. This showed no acute intracranial process, no evidence of temporal bone fracture. The patient did have left maxillary sinus disease present. Mastoids were clear. ASSESSMENT: 1. 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 I am limited to tuning fork physical exam. I have given the patient my business card and told her I expect to see her back in the office, so that a full audiogram can be done to further evaluate. 2. Chronic sinusitis involving especially the left maxillary sinus. Would recommend topical fluticasone 2 puffs each nostril every day. 3. Recent COVID infection at least 3 weeks ago. 4. Chronic obstructive pulmonary disease exacerbation. 5. Pulmonary embolism. PLAN: I will not plan to follow with you in the hospital, but will take back up again on outpatient visit. I appreciate the consultation and ability to share in her care. By: [id number] Hunter Do MD /nt
--- NOTE | ~2021-10-08 | EMS ---
[facility] [address] [place] [address] EMS Patient Care Report Name: DOMINGA KIM Room #: 210-P [facility] IN M.R.#: [id number] Admission: 10/08/21 Attend Phys: Patrick Kebede Discharge: 10/10/21 Date of : 42 Report #: [id number] THIS REPORT FOR: //name// Report Transmitted: 10/10/2021 14:00 EMS Care Summary [place], [place]/[facility] Incident [id number] @ 10/08/2021 07:39 Incident Location [address] Patient DOMINGA KIM Female, 81 Years 1940 Patient Address [address] [place] [address] Patient History Other,Chronic Obstructive Pulmonary Disease (COPD),Rheumatoid Arthritis,Hypotension, Patient Allergies Cipro,Levaquin, Patient Medications Other, Hydrocodone, Prednisone, Chief Complaint SOA, COUGH, FEVER, AND WEAKNESS Disposition Transported No Lights/[place] Reason Breathing Problem [place]ported [place] [facility] [place] N[place] UPON ARRIVAL WE FOUND OUR 81 YEAR OLD FEMALE PATIENT, WITH A HX OF COPD AND A RECENT COVID-19 DIAGNOSIS, LAYING IN BED IN HER APT AT [facility] WITH HER [facility] [address] [place] [address] EMS Patient Care Report Name: DOMINGA KIM Room #: 210-P [facility] IN M.R.#: [id number] Admission: 10/08/21 Attend Phys: Patrick Ibarra Yandy Discharge: 10/10/21 Date of : 42 Report #: [id number] DAUGHTER BY HER SIDE COMPLAINING OF SOA, A COARSE COUGH, FEVER, AND WEAKNESS THAT HAS BECOME PROGRESSIVELY WORSE OVER THE PAST WEEK. THE PATIENT IS UNVACCINATED AND HAS BEEN TAKING IVERMECTIN. THE DAUGHTER REQUESTS THE PATIENT BE TRANSPORTED TO [facility] FOR EVALUATION. Initial Vitals @07:59P: 118,CO: 0,SpO2: 94, @07:58P: 121,R: 18,BP: 138/86,Pain: 0/10,GCS: 15,Temp: 100.3F,Glucose: 118,SpO2: 93,Revised Trauma: 12,[place] Suspected: false @08:07P: 130,R: 20,BP: 132/80,Pain: 0/10,GCS: 15,SpO2: 95,Revised Trauma: 12,OH Suspected: false Assessments @07:52MENTAL:Place Oriented,Person Oriented,Time Oriented,Confused,SKIN:Hot,HEENT:Eyes: Left Pupil: 4-mm,Eyes: Right Pupil: 4-mm,Head/Face: No Abnormalities,Neck/Airway: No Abnormalities,LUNG SOUNDS:General: No Abnormalities,ABDOMEN:General: No Abnormalities,PELVIS//GI:No Abnormalities,EXTREMITIES:Left Arm: No Abnormalities,Right Arm: No Abnormalities,Left Leg: No Abnormalities,Right Leg: No Abnormalities,PULSE:Radial: 2+ Normal,NEURO:No Abnormalities, Impression Shortness of breath Procedures @07:52 ALS Assessment Response: UnchangedSucceeded @07:58 3-Lead ECG Response: UnchangedSucceeded @08:00 IV Therapy - Saline Lock 0cc (20 ga) Site: Forearm-Left Response: UnchangedSucceeded @07:53 Oxygen FlowRate: 3 Device: Nasal Cannula (NC) Response: UnchangedSucceeded Timeline 07:37,Call Received 07:37,Dispatch Notified 07:39,Dispatched 07:40,En Route 07:46,On Scene 07:52,At Patient 07:52,ALS Assessment,Response: UnchangedSucceeded, 07:53,Oxygen FlowRate: 3 Device: Nasal Cannula (NC) Response: UnchangedSucceeded, 07:58,3-Lead ECG,Response: UnchangedSucceeded, 07:58,BP: 138/86 M,PULSE: 121,RR: 18 R,SPO2: 93 Ox,ETCO2: ,B,PAIN: 0,GCS: 15, [address] [address] EMS Patient Care Report Name: DOMINGA KIM Room #: 210-P [facility] IN M.R.#: [id number] Admission: 10/08/21 Attend Phys: Patrick Kebede Discharge: 10/10/21 Date of : 42 Report #: [id number] 07:59,BP: / M,PULSE: 118,RR: R,SPO2: 94 Ox,ETCO2: ,BG: ,PAIN: ,GCS: , 08:00,IV Therapy - Saline Lock 0cc 20 ga Site: Forearm-Left,Response: UnchangedSucceeded, 08:03,Depart Scene 08:07,At Destination 08:07,BP: 132/80 M,PULSE: 130,RR: 20 R,SPO2: 95 Ox,ETCO2: ,BG: ,PAIN: 0,GCS: 15, 08:28,Call Closed Disclaimer v1.1 Copyright 2021 [employer] This EMS Care Summary contains data elements from the applicable legal record (which may be displayed differently). It is designed to provide pertinent information for the following purposes: continuity of care, clinical quality, and state data reporting. The complete legal record is available to ED staff and administrators of the receiving hospital in [employer]'s Patient Tracker. All data is provided "as is."
[~2021-10-08 08:12] MED LIST changes: +IPRAT-ALBUT 0.5-3 ML INH; +IVERMECTIN3 MG; +MIDODRINE HCL 55 M1 PO; +PREDNISONE 20 M20 M1 PO
[2021-10-08 08:13] VITALS: BP 149/69
[2021-10-08] MEDS ORDERED: PROAIR HFA8.5 GM INH (08:27)
[2021-10-08 08:36] LABS: ABSOLUTE NEUTROPHILS 6.2 thou/uL (1.4-8.2); BASOPHILS 0.8 % (0.0-2.0); EOSINOPHILS 4.1 % (0.0-3.0); HEMOGLOBIN 11.6 gm/dL (12.0-15.0); LYMPHOCYTES 12.3 % (24.0-44.0); MCH 27.7 pg (26.0-34.0); MCHC 32.3 g/dL (28.0-37.0); MCV 85.7 fL (80.0-100.0); MONOCYTES 6.9 % (1.0-8.0); PLATELET COUNT 284 thou/uL (150-400); POLYS 75.9 % (36.0-66.0); RDW 15.6 % (10.5-14.5); WBC 8.2 thou/uL (4.0-11.0)
[2021-10-08 08:53] LABS: CALCIUM 8.4 mg/dL (8.5-10.1); CREATININE 0.7 mg/dL (0.6-1.0)
[2021-10-08 09:02] LABS: ALBUMIN 2.5 g/dL (3.4-5.0); TOTAL BILIRUBIN 0.4 mg/dL (0.2-1.0)
[2021-10-08 09:06] LABS: BE(vivo) 3.1 mmol/L (-2 to +3); HCO3 28.3 mmol/L (22.0-26.0); PCO2 45.7 mmHg (35.0-45.0); PO2 75.6 mmHg (80.0-100.0); sO2 95.2 % (92.0-98.0)
[2021-10-08 11:07] VITALS: BP 93/51
[2021-10-08 14:03] VITALS: BP 99/57
[2021-10-08] MEDS ORDERED: NORCO7.5 PO (14:31)
[2021-10-08] MEDS ORDERED: PREDNISONE 10 M10 MG PO (14:32)
[2021-10-08] MEDS ORDERED: FLONASE 0.05%50 MCG NARES (14:32)
[2021-10-08] MEDS ORDERED: KLONOPIN0.5 MG PO (14:32)
[2021-10-08 16:15] VITALS: BP 110/65
--- NOTE | 2021-10-08 16:21 | NUR ---
PT TO THE UNIT FROM THE ED. ORIENTED TO ROOM AND BEDSPACE - ADMISSION ASSESSMENT CHARTED - CARE PLAN INITIATED. PT WITH NO CO'S OF PAIN OR NAUSEA. UP TO THE BSC TO VOID. FAMILY AT THE BEDSIDE. APPEARS TO BE RESTING COMFORTABLY AT THE PRESENT TIME.
[2021-10-08 20:08] VITALS: BP 144/70
[2021-10-09 00:41] VITALS: BP 127/68
[2021-10-09 02:54] LABS: HEMATOCRIT 32.6 % (37.0-47.0); HEMOGLOBIN 10.4 gm/dL (12.0-15.0); MCH 27.5 pg (26.0-34.0); MCV 86.1 fL (80.0-100.0); RBC 3.79 mil/uL (4.20-5.00); RDW 15.6 % (10.5-14.5); WBC 4.6 thou/uL (4.0-11.0)
[2021-10-09 03:20] LABS: ALBUMIN 2.2 g/dL (3.4-5.0); CREATININE 0.5 mg/dL (0.6-1.0); PHOSPHORUS 2.6 mg/dL (2.5-4.9); POTASSIUM 4.7 mmol/L (3.5-5.1)
[2021-10-09 03:22] VITALS: BP 134/60
--- NOTE | 2021-10-09 08:00 | NUR ---
ASSUME CARE 2300. PT STABLE. RESTING IN BED WITH NO DISTRESS. ADEQUATE REST NOTED THROGUH THE SHIFT. A/O X 4/. SR ON MONITOR. ASSESSMENT CHARTED. PROGRESSING MODERATELY TO POC. SR ON MONITOR. NO SOB NOTED. 2LNC. PLAN IS TO CONTINUE TO MONITOR RESP FUNCTION AND ANTICOAG THERAPY. WILL CONTINUE TO MONITOR AND FOLLOW WITH POC
--- NOTE | 2021-10-09 08:20 | EKG ---
[facility] [employer] [place] [address] ELECTROCARDIOGRAM REPORT Name: DOMINGA KIM Room #: 210-P ADM IN M.R.#: [id number] Admission: 10/08/21 Attend Phys: Patrick Kebede Discharge: Date of : 42 Report #: [id number] [facility] ED Test Date: 2021-10-08 Test Time: 08:18:45 Pat Name: DOMINGA KIM Department: Room: 210 Gender: F Blankmaker: tramaine : 1940 Requested By: Britton Nowak Order Number: [id number] MD: Franco Fernandez Measurements Intervals [place] Rate: 118 P: 77 [place]: 125 QRS: 78 QRSD: 96 T: 19 QT: 300 QTc: 421 Interpretive Statements Sinus tachycardia Nonspecific ST and T wave abnormality Baseline wander in lead(s) I,III,aVL Compared to ECG 05/08/2021 14:11:01 Nonspecific change in the ST and T wave segments Electronically Signed On 10-09-2021 8:20:18 CAR SHIFTER by Franco Fernandez [email or web address] <ELECTRONICALLY SIGNED> By: Franco Fernandez MD, [facility] 10/09/21819 7 7 Franco Fernandez MD, [facility] /EPI
[2021-10-09 08:27] VITALS: BP 128/56
--- NOTE | 2021-10-09 08:41 | NUR ---
"KATIE" LEFT SIDE PE-ELIQUS BID, A/O X 4, ON 4 L VIA NASAL CANNULA, STAND BY, RIGHT AC AND LEFT FOREARM PIV SALINE LOCKED. CONT B/B, LEFT LOWER HOLLOWAY SKIN TEAR-MEPILEX IN PLACE, SR ON TELE 89 BPM, NO PAIN, SOB WITH MOVEMENTS, COUGH-PRODUCTIVE, THICK WHITE MUCUS.
[2021-10-09 11:00] VITALS: BP 95/74
--- NOTE | 2021-10-09 11:33 | NUR ---
Nutrition: pt admitted with PE. PMH: COPD, RA. Recent COVID dx 3 weeks ago at [facility]. Received consult stating "Weight loss/COVID". No weight loss noted per [employer] hx. Pt voiced weight is 124#. Noted weight 125# last april. Current 144# but likely skewed due to bedscale. Pt unable to tell RD about appetite. Was preoccupied by a medication (eliquis) pt was put on and had multiple questions which were deferred to Nsg. Refusing ensure. Encouraged adequate po intakes. Pt will D/C soon. Place as low risk.
--- NOTE | 2021-10-09 11:51 | NUR ---
PATIENT ADMITTED FOR PE. CHART REVIEWED AND DISCUSSED WITH CARE TEAM. CM MET ITH PT THIS DAY. CM ROLE INTRODUCED. PT REPORTS SHE LIVES HER HOME ALONE AT [facility]. PT DENIES USE OF ASST DEVICE AND REPORTS DOING HER OWN BATHING, TOILETING, AND DRESSING. SHE DOES HAVE HOME OXYGEN THROUGH [facility] AND WEARS 2-3L/NC AT BASELINE. PT REPORTS NO STAIR INSIDE OR OUTSIDE THE HOME. PT DENIES SNF/REHAB SERVICES IN THE PAST. PT DOES REPORTS HE UTILIZED [facility] IN THE PAST. CM SPOKE TO [facility] LIASON WHO CONFIRMED PT USED THEM IN RECENT PAST. INFORMED LIASON PT WOULD LIKE TO UTILIZE THEM AGAIN SHOULD SHE NEED HH ONCE MEDICALLY STABLE TO DC. PT WILL DISCHARGE WITH NEW MED ELIQUIS. CM SPOKE TO PT REGARDING COST OF MED. INSTRUCTED PT ONCE DISCHARGED CM WILL CALL PHARM TO DETERMINE PT COST OF MED. CM ALSO GAVE PT COUPON FOR FREE 30 DAY TRIAL. PT ASKED CM WHY NO ONE HAD EVER TAKEN THIS MEDICATION BEFORE AND SHE IS BEING ASKED TO TAKE IT. PT INITIALLY CONFUSED "30 DAY TRIAL" MESSAGE ON ELIQUIS COUPON A TRIAL MED. EDUCATION PROVIDED TO PT BY CM AND NURSING. PT NOW REPORTS UNDERSTANDING. CM RECOMMENDING HH AT THIS TIME. DISCHARGE PLAN FOR PT [facility] CM FOLLOWING FOR DC PLANNING.
--- NOTE | 2021-10-09 14:27 | NUR ---
WOUND CONSULT: ROUNDING WITH [employer]. THE WOUND DRESSING WAS REMOVED BY [employer]. THE WOUND ETIOLGY IS RE;SKIN TEAR. THE WOUND HAD SLIGHT CAPPILARY BLEEDING WHICH RESLOVED QUICKLY. PURACOL AG, XEROFORM ABD AND SECURED WITH KERLIX WAS APPLIED. RECOMMENDATIONS; CONTINUE CURRENT ORDERS. CURLY SPOKE WITH ELIZABETH.
--- NOTE | 2021-10-09 14:42 | NUR ---
I have reviewed the documentation by MATT CHILDERS from 10/09/21 to 10/09/21 and I concur with it. ANGUS IBANEZ, PT, DPT
[2021-10-09 15:30] VITALS: BP 143/72
[2021-10-09 19:18] VITALS: BP 138/76
[2021-10-10 05:00] VITALS: BP 128/59
[2021-10-10 05:22] LABS: HEMATOCRIT 32.6 % (37.0-47.0); HEMOGLOBIN 10.3 gm/dL (12.0-15.0); MCH 28.5 pg (26.0-34.0); MCHC 31.7 g/dL (28.0-37.0); MCV 89.7 fL (80.0-100.0); RBC 3.63 mil/uL (4.20-5.00); RDW 16.1 % (10.5-14.5); WBC 8.2 thou/uL (4.0-11.0)
--- NOTE | 2021-10-10 06:41 | NUR ---
PARTIAL PLATE ALERT IS OVER. IT HAS BEEN FOUND IN ONE OF HER PT BAG. PT UP TO BSC WITH SBA.
[2021-10-10] MEDS ORDERED: DOXYCYCLINE HYC50 MG PO (07:51)
[2021-10-10] MEDS ORDERED: ELIQUIS5 MG PO (07:52)
[2021-10-10 08:00] VITALS: BP 128/59
[2021-10-10 09:18] VITALS: BP 128/59
--- NOTE | 2021-10-10 09:23 | NUR ---
PATIENT STATES SHE WILL NOT LEAVE UNTIL WOUND CARE COMES IN AND CHANGES HER DRESSING. REFUSING TO LET ME CHANGE IT AND IS REQUESTING ON WOUND CARE TO DO IT.
[2021-10-10 10:03] VITALS: BP 133/58
--- NOTE | 2021-10-10 11:44 | NUR ---
PATIENT STATED THAT SHE DIDNT TAKE HER MEDICATIONS WHOLE AND TO ASK THE NURSE FROM YESTERDAY HOW SHE TOOK THE MEDICATIONS. I SPOKE WITH NURSE AND SHE TOLD ME SHE CRUSHED HER MEDICATIONS AND PUT THEM IN APPLESAUCE. WENT BACK IN ROOM, CRUSHED MEDICATIONS AND PUT THEM IN APPLESAUCE. PATIENT STATED, "I DONT TAKE MY MEDICATIONS LIKE THAT ASK THE NURSE FROM YESTERDAY." THE NURSE FROM YESTERDAY WENT IN AND TOLD PATIENT SHE TAKES HER MEDICATIONS LIKE THAT AND PATIENT TOOK MEDICATIONS.
[2021-10-10 12:11] VITALS: BP 133/72
--- NOTE | 2021-10-10 12:21 | NUR ---
CHART REVIEWED AND DISCUSSED WITH CARE TEAM. NURSING SPOKE TO CM REGARDING DISCHARGE PLAN BACK TO [place] WITH HH. PT HAVING PERIODS ON INTERMED CONFUSION. PT UNABLE TO FIND PARTIAL YESTERDAY. PT CALLED DAUGHTER AND ARRANGED FOR HER TO COME TO HOSPITAL TODAY TO HELP FIND PARTIALS. PT FOUND PARTIALS AT SHIFT CHANGE LAST NIGHT. PT CALLED DAUGHTER AT 3AM TO TELL HER NOT TO COME SHE FOUND HER PARTIALS. CONCERN BY NURSING WHY PT CALLED AT 3 AM AND NOT DURING SHIFT CHANGE WHEN FOUND PARTIAL. CM MET WITH PT TO DISCUSS. PT ALERT AND ORIENTED X 4. PT INFORMED CM DAUGH HAS LUPUS AND TOLD PT SHE DID NOT FEEL GOOD. PT DID NOT WANT DAUGHTER TO GET OUT OF THE HOUSE SINCE SHE DIDNT FEEL GOOD AND WANTED TO NOTIFY DAUGHTER BEFORE MAKING THE TRIP. UNKNOWN IF PT LOST TRACK OF TIME WHEN CALLED PT. NURSING INFORMED CM PT HAD CONCERNS REGARDING DISCHARGE. CM TALKED TO PTS DAUGHTER OVER THE PHONE. DAUGHTER INDICATED SHE WAS HERE AT THE HOSPITAL AND WITH THE PT. CM OFFERED TO COME SPEAK TO HER. DAUGHTER VOICED OVER THE PHONE WAS OK. DAUGHTER VOICED WANTING TO KNOW WHY PT HAD FEVERS AND WAS SO WEAK. SHE VOICED I SEE "MOM IS OK NOW AND NOW SHE IS FINE" BUT "WHAT HAPPENED". DR RIVERS NOTIFIED AND PLACED CALL TO PTS DAUGHT AND THEY DISCUSSED. DAUGHTER VOICED NO FURTHER QUESTIONS. CM ASKED DAUGH ABOUT CONCERNS GOING HOME WITH HH. SHE VOICED HH IS FINE AND I WILL STAY WITH HER. CM DISCUSSED KEEPING A LOG OF CONFUSION AND TIMES A DAY TO DISCUSS WITH PCP. CM ALSO EXPLAINED HH AND SERVICE THEY WILL BE PROVIDING. ALSO INFORMED THEIR CONTACT INFO IN ON DC INSTRUCTIONS. UNIT CN AWARE AND UPDATED. NO FURTHER CM INTERVENTIONS INDICATED AT THIS TIME.
[2021-10-10 12:35] VITALS: BP 128/59
--- NOTE | 2021-10-10 16:09 | NUR ---
I have reviewed the documentation by MATT CHILDERS from 10/10/21 to 10/10/21 and I concur with it. ANGUS IBANEZ, PT, DPT
== END 2021-10-10 14:07 | disposition home health service (06) | DRG 175 ==
LOC: ER 08:12 → 2N 10:36 → EROBS 10:36 → 2N 14:41
PROVIDERS: Emergency Medicine; ADMIT Hospitalist; ATTEND Hospitalist
DX: I26.99 Other pulmonary embolism without acute cor pulmonale (principal); J18.9 Pneumonia, unspecified organism; E43 Unspecified severe protein-calorie malnutrition; J96.90 Respiratory failure, unspecified, unspecified whether with hypoxia or hypercapnia; J44.1 Chronic obstructive pulmonary disease with (acute) exacerbation; J81.1 Chronic pulmonary edema; J44.0 Chronic obstructive pulmonary disease with (acute) lower respiratory infection; Z20.822 Contact with and (suspected) exposure to COVID-19; M06.9 Rheumatoid arthritis, unspecified; J32.0 Chronic maxillary sinusitis; I95.89 Other hypotension; R53.81 Other malaise; S81.811A Laceration without foreign body, right lower leg, initial encounter; X58.XXXA Exposure to other specified factors, initial encounter; Y93.89 Activity, other specified; Z88.1 Allergy status to other antibiotic agents; Y92.89 Other specified places as the place of occurrence of the external cause; Y99.8 Other external cause status; Z28.21 Immunization not carried out because of patient refusal; Z68.24 Body mass index [BMI] 24.0-24.9, adult
CPT/HCPCS: 10081